=== PATIENT | female | born 1930 | race Caucasian/White ===

== ENCOUNTER 2016-08-06 12:42 | Outpatient (RCR) | payer MEDICARE, OTHER ==
[~2016-08-06 12:42] MED LIST: ACYC800T PO; HYDR-3729 PO
--- OUTSIDE RECORDS SUMMARY | 2016-08-06 12:45 | XMS REPORT | Continuity of Care Document ---
Author Author [facility] Organization [facility] Address Unknown Phone Unavailable Allergies Active Description Code Type Severity Reaction Onset Reported/Identified Relationship to Patient Clinical Status Yes codeine [id number] Drug Allergy Unknown N/A 11/14/2015 Medications Problems Date Dx Coded Attending Type Code Diagnosis Diagnosed By 11/14/2015 MYLES DOWLING MD Ot B02.9 ZOSTER WITHOUT COMPLICATIONS 11/17/2015 MYLES DOWLING MD Ot B02.9 ZOSTER WITHOUT COMPLICATIONS Procedures Results Encounters ACCT No. Visit Date/Time Discharge Status Pt. Type Provider Facility Loc./Unit Complaint [id number] 11/14/2015 12:30:00 2015 15:20:00 DIS Emergency MYLES DOWLING MD [facility] ER [id number] 08/06/2016 11:27:00 PEN Preadmit JOUSTRA DO, C T [facility] REHAB SHOULDER PAIN; ARM PAIN [id number] 05/20/2016 09:27:00 PEN Preadmit JOUSTRA DO, C T [facility] REHAB L ARM AND SHOULDER PAIN; SPINAL STENOSIS
== END 2016-08-11 13:10 | disposition home or self-care (01) ==
PROVIDERS: ATTEND Family Medicine
DX: M48.02 Spinal stenosis, cervical region (principal)

== ENCOUNTER 2016-11-27 01:03 | Emergency (ER) | payer OTHER ==
[~2016-11-27] VITALS: Ht 160 cm; Wt 72.6 kg
[2016-11-27] MEDS ORDERED: ASPIRIN 81 MG CHEW (CHILDREN'S ASA) PO STA (01:21)
[2016-11-27] MEDS ORDERED: cloNIDine 0.1 MG (CATAPRES) TAB PO ONE (01:30)
[2016-11-27 01:33] LABS: BASOPHILS % (AUTO) 1 % (0-10); EOSINOPHILS # (AUTO) 0.3 10^3/uL (0.0-0.3); EOSINOPHILS % (AUTO) 4 % (0-10); LYMPHOCYTES # (AUTO) 2.3 X 10^3 (1.0-4.0); LYMPHOCYTES % (AUTO) 35 % (12-44); MEAN CORPUSCULAR HEMOGLOBIN 29 PG (25-34); MEAN CORPUSCULAR HGB CONC 33 G/DL (32-36); MEAN CORPUSCULAR VOLUME 90 FL (80-99); MEAN PLATELET VOLUME 10.2 FL (7.4-10.4); MONOCYTES # (AUTO) 0.7 X 10^3 (0.0-1.0); MONOCYTES % (AUTO) 10 % (0-12); NEUTROPHILS # (AUTO) 3.4 X 10^3 (1.8-7.8); NEUTROPHILS % (AUTO) 50 % (42-75); PLATELET COUNT 299 10^3/uL (130-400); RED BLOOD COUNT 4.02 10^6/uL (4.35-5.85); RED CELL DISTRIBUTION WIDTH 13.5 % (10.0-14.5); WHITE BLOOD COUNT 6.7 10^3/uL (4.3-11.0)
[2016-11-27 01:46] LABS: ALANINE AMINOTRANSFERASE 16 U/L (0-55); ALBUMIN 4.3 GM/DL (3.2-4.5); ANION GAP 12 MMOL/L (5-14); ASPARTATE AMINO TRANSFERASE 16 U/L (5-34); BILIRUBIN,TOTAL 0.6 MG/DL (0.1-1.0); BLOOD UREA NITROGEN 22 MG/DL (7-18); BUN/CREATININE RATIO 27 (0-20); CALCIUM 9.7 MG/DL (8.5-10.1); CARBON DIOXIDE 24 MMOL/L (21-32); CHLORIDE 105 MMOL/L (98-107); CREATININE SERUM 0.82 MG/DL (0.60-1.30); GFR ESTIMATED > 60; GLUCOSE 123 MG/DL (70-105); HEMOLYSIS 7 (-100-29); LIPEMIA 1 (-100-49); MAGNESIUM 2.2 MG/DL (1.8-2.4); POTASSIUM 3.8 MMOL/L (3.6-5.0); SODIUM 141 MMOL/L (135-145); TOTAL PROTEIN 7.2 GM/DL (6.4-8.2)
[2016-11-27 01:52] LABS: TROPONIN I < 0.30 NG/ML (<0.30)
--- NOTE | 2016-11-27 01:53 | ED General ---
General Chief Complaint: Cardiac/General Problems Stated Complaint: HIGH BLOOD PRESSURE,DIZZY ON TUESDAY [facility] Nursing Triage Note: Pt presents to ED with c/o HTN that began earlier this week, states that she has been checking it periodically throughout the week and it resolved itself until yesterday morning. Pt c/o headache and dizziness. Denies CP or SOA. Nursing Sepsis Screen: No Definite Risk Source of Information: Patient Exam Limitations: No Limitations History of Present Illness Time Seen by Provider: 01:15 Initial Comments Here with report of blood pressure that is out of control over the last 12-24 hours and noted to be higher this week. Patient complains of mild posterior headache but otherwise denies chest pain or breathing problems. Denies nausea or vomiting. Denies diaphoresis. Patient had checked her blood pressure home several times and noted a few values that were greater than 200 systolic. This prompted ER visit. She is not currently on any blood pressure medicines. She does use a walker for mobility. She does report shortness of breath with activity but states that this is normal and has not changed. Timing/Duration: 12-24 Hours Severity: Moderate Associated Systoms: No Chest Pain, No Cough, No Fever/Chills, Headaches, No Nausea/Vomiting, No Shortness of Air, No Weakness Allergies and Home Medications Allergies Coded Allergies: codeine (Unverified Allergy, Unknown, 11/14/15) Home Medications Acyclovir 800 Mg Tablet, 800 MG PO 5XD, #35 Prescribed by: MYLES DOWLING on 11/14/15 1427 Hydrocodone/Acetaminophen 1 Each Tablet, 1 EACH PO QID, #20 Prescribed by: MYLES DOWLING on 11/14/15 1427 Constitutional: see HPI, No chills, No fever EENTM: no symptoms reported Respiratory: no symptoms reported, No short of breath, No wheezing Cardiovascular: see HPI, No chest pain, No edema, No palpitations Gastrointestinal: No abdominal pain, No nausea, No vomiting Genitourinary: no symptoms reported Musculoskeletal: no symptoms reported Skin: no symptoms reported All Other Systems Reviewed Negative Unless Noted: Yes Past Ugqctds-Syiylh-Mdxaqk Hx Patient Social History Alcohol Use: Denies Use Recreational Drug Use: No Smoking Status: Never a Smoker 2nd Hand Smoke Exposure: No Recent Foreign Travel: No Contact w/Someone Who Travel: No Recent Infectious Disease Expo: No Recent Hopitalizations: No Seasonal Allergies Seasonal Allergies: No Surgeries HX Surgeries: Yes Surgeries: Hysterectomy Respiratory Hx Respiratory Disorders: No Cardiovascular Hx Cardiac Disorders: Yes Cardiac Disorders: High Cholesterol, Hypertension Neurological Hx Neurological Disorders: No Reproductive System Hx Reproductive Disorders: No [employer] History: Hysterectomy Genitourinary Hx Genitourinary Disorders: No Gastrointestinal Hx Gastrointestinal Disorders: No Musculoskeletal Hx Musculoskeletal Disorders: No Endocrine Hx Endocrine Disorders: No HEENT HX ENT Disorders: No Cancer Hx Cancer: No Psychosocial Hx Psychiatric Problems: No Integumentary HX Skin/Integumentary Disorder: No Blood Transfusions Hx Blood Disorders: No Reviewed Nursing Assessment Reviewed/Agree w Nursing PMH: Yes Family Medical History Significant Family History: No Pertinent Family Hx Physical Exam Vital Signs Vital Sign - Last 12Hours 11/27/16 01:11 Pulse 80 Resp 18 B/P (MAP) 229/108 Pulse Ox 97 O2 Delivery Room Air Capillary Refill : Less Than 3 Seconds General Appearance: No Apparent Distress, WD/WN HEENT: PERRL/EOMI, Pharynx Normal Neck: Non Tender, Supple Respiratory: Lungs Clear, Normal Breath Sounds Cardiovascular: Regular Rate, Rhythm, No Murmur Gastrointestinal: Non Tender, Soft Back: Normal Inspection, No CVA Tenderness, No Vertebral Tenderness Extremity: Non Tender, No Calf Tenderness Neurologic/Psychiatric: Alert, Oriented x3 Skin: Normal Color, Warm/Dry Progress/Results/Core Measures Results/Orders Lab Results Laboratory Tests Test 11/27/16 01:16 Range/Units White Blood Count 6.7 4.3-11.0 10^3/uL Red Blood Count 4.02 L 4.35-5.85 10^6/uL Hemoglobin 11.8 11.5-16.0 G/DL Hematocrit 36 35-52 % Mean Corpuscular Volume 90 80-99 FL Mean Corpuscular Hemoglobin 29 25-34 PG Mean Corpuscular Hemoglobin Concent 33 32-36 G/DL Red Cell Distribution Width 13.5 10.0-14.5 % Platelet Count 299 130-400 10^3/uL Mean Platelet Volume 10.2 7.4-10.4 FL Neutrophils (%) (Auto) 50 42-75 % Lymphocytes (%) (Auto) 35 12-44 % Monocytes (%) (Auto) 10 0-12 % Eosinophils (%) (Auto) 4 0-10 % Basophils (%) (Auto) 1 0-10 % Neutrophils # (Auto) 3.4 1.8-7.8 X 10^3 Lymphocytes # (Auto) 2.3 1.0-4.0 X 10^3 Monocytes # (Auto) 0.7 0.0-1.0 X 10^3 Eosinophils # (Auto) 0.3 0.0-0.3 10^3/uL Basophils # (Auto) 0.0 0.0-0.1 10^3/uL Sodium Level 141 135-145 MMOL/L Potassium Level 3.8 3.6-5.0 MMOL/L Chloride Level 105 98-107 MMOL/L Carbon Dioxide Level 24 21-32 MMOL/L Anion Gap 12 5-14 MMOL/L Blood Urea Nitrogen 22 H 7-18 MG/DL Creatinine 0.82 0.60-1.30 MG/DL Estimat Glomerular Filtration Rate > 60 BUN/Creatinine Ratio 27 H 0-20 Glucose Level 123 H 70-105 MG/DL Calcium Level 9.7 8.5-10.1 MG/DL Magnesium Level 2.2 1.8-2.4 MG/DL Total Bilirubin 0.6 0.1-1.0 MG/DL Aspartate Amino Transf (AST/SGOT) 16 5-34 U/L Alanine Aminotransferase (ALT/SGPT) 16 0-55 U/L Alkaline Phosphatase 76 40-136 U/L Troponin I < 0.30 <0.30 NG/ML Total Protein 7.2 6.4-8.2 GM/DL Albumin 4.3 3.2-4.5 GM/DL My Orders Orders - ALESSANDRA BLANCO MD Cbc With Automated Diff (11/27/16 01:21) Comprehensive Metabolic Panel (11/27/16 01:21) Magnesium (11/27/16 01:21) Troponin I (11/27/16 01:21) Saline Lock/Iv-Start (11/27/16:21) Ekg Tracing (11/27/16:21) Monitor-Rhythm Ecg Trace Only (11/27/16:21) Chest 1 View, Ap/Pa Only (11/27/16 01:21) Aspirin Chewable Tablet (Baby Aspirin Ch (11/27/16 01:21) Metoprolol Succinate (Xl) Tab (Toprol Xl (11/27/16 01:30) Clonidine Tablet (Catapres Tablet) (11/27/16 01:30) Medications Given in ED Current Medications Medications Dose Ordered Sig/Edilberto Route Start Time Stop Time Status Last Admin Dose Admin Clonidine HCl 0.1 mg ONCE ONCE PO 11/27/16 01:30 11/27/16 01:31 DC 11/27/16 01:30 0.1 MG Metoprolol Succinate 25 mg ONCE ONCE PO 11/27/16 01:30 11/27/16 01:31 DC 11/27/16 01:30 25 MG Vital Signs/I&O Vital Sign - Last 12Hours 11/27/16 01:11 Pulse 80 Resp 18 B/P (MAP) 229/108 Pulse Ox 97 O2 Delivery Room Air Blood Pressure Mean: 148 Progress Note : Progress Note Seen and evaluated. IV, labs, EKG and chest x-ray ordered. Toprol-XL 25 mg by mouth and clonidine 0.1 mg by mouth ordered. Monitor patient. 0220: Blood pressure 158/81 with heart rate of 60. Patient without complaints of discomfort. Labs, x-ray and EKG reviewed in no acute findings. Discharged home with return precautions. Patient verbalize understanding instructions and agreement with plan. She is to follow-up with Dr. Keen early next week for recheck and further evaluation and adjustment a blood pressure medicine as needed. ECG Initial ECG Impression Date: Nov 27, 2016 Initial ECG Impression Time: :23 Initial ECG Rate: 72 Initial ECG Rhythm: Normal Sinus Initial ECG Impression: Normal Initial ECG Comparisson: No Previous ECG Available Comment Sinus rhythm with normal but leftward axis. No evidence of ST elevation GA. Previous available for comparison. Interpreted by me. Diagnostic Imaging Diagonstic Imaging: Xray Plain Films/CT/US/NM/MRI: chest Comments Enlarged cardiac silhouette but no acute findings. Reviewed: Reviewed by Me Departure Impression Impression: Primary Impression: Uncontrolled hypertension Disposition: HOME, SELF-CARE Condition: Improved Departure-Patient Inst. Decision time for Depature: 02:25 Referrals: PRANAV KEEN MD (PCP) Primary Care Physician Patient Instructions: High Blood Pressure (DC) Add. Discharge Instructions: All discharge instructions reviewed with patient and/or family. Voiced understanding. Take medications as directed. Follow-up with your doctor on Tuesday or Tuesday for recheck and further evaluation. Return for worse pain, fever, vomiting, weakness, rhythm problems or other concerns as needed. Scripts Metoprolol Tartrate (Metoprolol Tartrate) 25 Mg Tablet 25 MG PO BID, #28 TAB 0 Refills Prov: ALESSANDRA BLANCO MD 11/27/16 Copy Copies To 1: PRANAV KEEN MD, TIMOTHY D MD Nov 27, 2016 01:53
[2016-11-27] MEDS ORDERED: METO-333 PO (02:28)
[2016-11-27 02:52] VITALS: BP 132/69
--- NOTE | 2016-11-27 07:08 | Diagnostic Imaging Report ---
EXAMINATION: Portable erect AP chest at 1:42 AM INDICATION: Hypertension The mild cardiomegaly with left ventricular prominence seen on the prior exam of 11/14/15 is again evident and no different. There is shallow inspiration on this exam. Allowing for this technical factor, the lungs are clear. There is no sign of failure, pneumonia or a pleural effusion. The mediastinum is not widened. The osseous structures are intact. IMPRESSION: 1. Allowing for the shallow degree of inspiration, there is no evidence for an acute cardiopulmonary abnormality. 2. If clinical concern regarding an underlying abnormality persists, then a followup PA and lateral chest would be recommended for further study. Dictated by: Dictated on workstation # [id number]
== END 2016-11-27 02:40 | disposition home or self-care (01) ==
LOC: EDUNIT# 01:03 → ER 01:05
DX: I10 Essential (primary) hypertension (principal)
CPT/HCPCS: 36415; 71010; 80053; 83735; 84484; 85025; 93005; 93041